=== PATIENT | female | born 1955 | race Caucasian/White ===

== ENCOUNTER 2016-06-27 21:43 | Observation (INO) | payer OTHER ==
[~2016-06-27] VITALS: Ht 160 cm; Wt 77.5 kg
[~2016-06-27 21:43] MED LIST: GUAI118L94 PO; IBUP-1542 PO; LORA-186 PO; MECL25TA2 PO
--- NOTE | 2016-06-27 22:10 | ERA ---
ER Documentation Chief Complaint Date/Time DATE: 06/27/16 TIME: 22:10 Chief Complaint Dizziness HPI The patient is a 61-year-old female, presenting to the ER because of acute dizziness that began about 8 PM, associated with right ear pain, nausea but no vomiting. She feels as if the room is spinning. The dizziness is better if she closed her eyes. She denies similar symptoms previously. She denies headache, neck pain, chest pain, dyspnea, abdominal pain, vomiting, dysuria, diarrhea. She does not smoke or drink Past medical history: Hypertension Past surgical history: 2 , appendectomy, back surgery ROS All systems reviewed and are negative except as per history of present illness. Medications Home Meds Reported Medications Amlodipine Besylate* (Norvasc*) 5 Mg Tablet, 5 MG PO DAILY, TAB 06/27/16 Discontinued Reported Medications [none] Unknown Strength No Conflict Check 03/19/15 Discontinued Scripts Ibuprofen* (Motrin*) 600 Mg Tab, 600 MG PO Q6H Y for PAIN AND OR ELEVATED TEMP, #30 TAB Prov:VON GILLIS NP 03/19/15 Guaifenesin-Codeine Phosphate* (Guaifenesin* with Codeine Liq) 120 Ml Liquid, 5 ML PO Q4H for COUGH, #60 ML Prov:VON GILLIS NP 03/19/15 Loratadine* (Claritin*) 10 Mg Tablet, 10 MG PO DAILY, #30 TAB Prov:VON GILLIS NP 03/19/15 Meclizine Hcl* (Antivert*) 25 Mg Tablet, 25 MG PO Q6H Y for vertigo, #20 TAB Prov:ALEAH SCHMIDT NP 12/15/14 Meclizine Hcl* (Antivert*) 25 Mg Tablet, 25 MG PO Q6H Y for NAUSEA AND/OR VOMITING, #20 TAB Prov:MARISA CORREA DO 11/05/14 Allergies Allergies: Coded Allergies: No Known Drug Allergies (Verified Allergy, Mild, 06/27/16) PMhx/Soc History of Surgery: Yes (C SECTION X2, APPENDECTOMY, BACK ) Anesthesia Reaction: No Hx Neurological Disorder: No Hx Respiratory Disorders: No Hx Cardiac Disorders: Yes (HTN) Hx Psychiatric Problems: No Hx Miscellaneous Medical Probl: No Hx Alcohol Use: No Hx Substance Use: No Hx Tobacco Use: No Smoking Status: Former smoker Physical Exam Vitals Vital Signs Date Time Temp Pulse Resp B/P Pulse Ox O2 Delivery O2 Flow Rate FiO2 06/28/16 00:40 97.6 64 17 130/80 98 Room Air 06/27/16 23:05 57 19 152/75 98 Room Air 06/27/16 22:05 60 14 140/79 97 Room Air 06/27/16 21:52 96.9 70 22 193/91 98 Physical Exam Const: No acute distress. Head: Atraumatic. Eyes: Normal Conjunctiva. ENT: Normal External Ears, Nose and Mouth. Neck: Full range of motion. No meningismus. Resp: Clear to auscultation bilaterally. Cardio: Regular rate and rhythm, no murmurs. Abd: Soft, non distended, normal bowel sounds, non tender. Skin: No petechiae or rashes. Back: No midline or flank tenderness. Ext: No cyanosis, or edema. Neur: Awake and alert. No focal deficit Psych: Normal Mood and Affect. Result Diagram: 06/27/16222406/27/162224 Results 24 hrs Laboratory Tests Test 06/27/16 22:25 06/27/16 22:30 06/27/16 23:09 White Blood Count 7.210^3/ul Red Blood Count 4.7410^6/ul Hemoglobin 14.5g/dl Hematocrit 43.2% Mean Corpuscular Volume 91.1fl Mean Corpuscular Hemoglobin 30.6pg Mean Corpuscular Hemoglobin Concent 33.6g/dl Red Cell Distribution Width 11.7% Platelet Count 38157^3/UL Mean Platelet Volume 11.2fl Neutrophils % 53.8% Lymphocytes % 35.6% Monocytes % 7.5% Eosinophils % 2.5% Basophils % 0.3% Nucleated Red Blood Cells % 0.0/100WBC Neutrophils # 3.910^3/ul Lymphocytes # 2.610^3/ul Monocytes # 0.510^3/ul Eosinophils # 0.210^3/ul Basophils # 0.010^3/ul Nucleated Red Blood Cells # 0.010^3/ul Prothrombin Time 12.7Sec Prothrombin Time Ratio 1.0 INR International Normalized Ratio 0.95 Activated Partial Thromboplast Time 33.2Sec Sodium Level 145mmol/L Potassium Level 3.8mmol/L Chloride Level 106mmol/L Carbon Dioxide Level 28mmol/L Anion Gap 15 Blood Urea Nitrogen 20mg/dl Creatinine 0.69mg/dl Glucose Level 106mg/dl Calcium Level 9.0mg/dl Bedside Glucose 107mg/dL Bedside Urine pH (LAB) 6.0 Bedside Urine Protein (LAB) Negative Bedside Urine Glucose (UA) Negative Bedside Urine Ketones (LAB) Trace Bedside Urine Blood Negative Bedside Urine Nitrite (LAB) Negative Bedside Urine Leukocyte Esterase (L Negative Current Medications Medications (Trade) Dose Ordered Sig/Rosi Route PRN Reason Start Time Stop Time Status Last Admin Dose Admin Meclizine HCl (Antivert) 25 mg ONCE ONCE PO 06/27/16 22:30 06/27/16 22:31 DC 06/27/16 22:34 Ondansetron HCl (Zofran Odt) 4 mg ONCE STAT ODT 06/27/16 22:22 06/27/16 22:24 DC 06/27/16 22:34 Ondansetron HCl (Zofran Inj) 4 mg ONCE STAT IV 06/27/16 23:13 06/27/16 23:14 DC 06/27/16 23:21 Procedures/[place] [id number] Radiology Main Line: [phone] DIAGNOSTIC IMAGING REPORT Patient: ANDREI HUNTER : 1955 Age: 61 Sex: F MR #: [id number] DOS: 06/27/162221 Ordering MD: SRINIVAS CARNEY MD Location: E/R Room/Bed: PROCEDURE: CT Brain without contrast. CLINICAL INDICATION: Syncope. TECHNIQUE: Serial axial computed tomographic images of the brain was performed on a CT scanner from the skull base through the vertex without contrast. Sagittal and coronal reconstruction images were produced. Exam CTDlvol = 44 mGy and DLP = 720 mGy-cm. One of the following 3 dose reduction techniques were used: Automated exposure control; adjustment of the mA and/or kV according to patient size; or use of iterative reconstruction technique. COMPARISON: None available FINDINGS: The ventricles and sulci are normal in size and configuration. There is no midline shift. There are no focal parenchymal abnormalities. There is no acute stroke. No acute intracranial hemorrhage or abnormal extra-axial fluid collection. No fracture identified. Visualized paranasal sinuses are clear. IMPRESSION: 1. No acute intracranial abnormality. RPTAT: HMVK .Srinivas Macedo MD, Date Time Electronically viewed and signed by .Srinivas Macedo MD, MD on 06/27/2016 23:12 .K/ CC: SRINIVAS CARNEY MD EKG: Read by emergency physician Rate/Rhythm: Normal Sinus Rhythm 60 beats/min QRS, ST, T-waves: No ST elevation, no T inversion Impression: Normal EKG MEDICAL MAKING DECISION: The patient is a 61-year-old female, presenting to the ER because of acute dizziness, most likely acute benign positional vertigo. She was treated with Zofran 4 mg IV 2 for nausea and Antivert 25 mg p.o. for dizziness with minimal response. She is unable to ambulate independently because of the dizziness, therefore should be admitted for further evaluation and possible further imaging study. The differential diagnoses considered include but are not limited to central causes such as cerebellar infarct, cerebellar hemorrhage, cerebellar tumor, acoustic neuroma, peripheral causes such as benign positional vertigo, labyrinthitis, medication, Meniere's disease. Departure Diagnosis: Primary Impression: Dizziness Condition: Stable Comments I discussed the findings with the patient. I discussed the patient with his physician Dr. Lazcano who was made aware of the lab, the treatment, the patient condition. The patient is admitted to telemetry for 24 hours observation at 12: 15 AM SRINIVAS CARNEY MD Jun 27, 2016 22:10
[2016-06-27] MEDS ORDERED: AMLO5TAB4 PO (22:17)
[2016-06-27] MEDS ORDERED: ONDANSETRON (ODT) 4 MG TAB ODT STA (22:22)
[2016-06-27] MEDS ORDERED: MECLIZINE 12.5 MG TAB PO ONE (22:30)
[2016-06-27 22:36] LABS: ADD SCAN DIFF NO
[2016-06-27 22:39] LABS: BASOPHILS % 0.3 % (0.0-2.0); EOSINOPHILS # 0.2 10^3/ul (0.0-0.5); EOSINOPHILS % 2.5 % (0.0-7.0); HEMATOCRIT 43.2 % (37.0-47.0); HEMOGLOBIN 14.5 g/dl (12.0-16.0); LYMPHOCYTES # 2.6 10^3/ul (0.8-2.9); LYMPHOCYTES % 35.6 % (15.0-51.0); MEAN CORPUSCULAR HEMOGLOBIN 30.6 pg (29.0-33.0); MEAN CORPUSCULAR HGB CONC 33.6 g/dl (32.0-37.0); MEAN CORPUSCULAR VOLUME 91.1 fl (82.0-101.0); MEAN PLATELET VOLUME 11.2 fl (7.4-10.4); MONOCYTE # 0.5 10^3/ul (0.3-0.9); MONOCYTES % 7.5 % (0.0-11.0); NEUTROPHIL # 3.9 10^3/ul (1.6-7.5); NEUTROPHILS % 53.8 % (39.0-77.0); PLATELET COUNT 183 10^3/UL (140-415); RED BLOOD COUNT 4.74 10^6/ul (4.20-5.40); RED CELL DISTRIBUTION WIDTH 11.7 % (11.5-14.5); WHITE BLOOD COUNT 7.2 10^3/ul (4.8-10.8)
[2016-06-27 22:49] LABS: INR 0.95; PROTIME 12.7 Sec (12.2-14.2)
[2016-06-27 22:50] LABS: PARTIAL THROMBOPLASTIN TIME 33.2 Sec (25.0-35.0)
[2016-06-27 22:53] LABS: POTASSIUM 3.8 mmol/L (3.5-5.1)
[2016-06-27 22:56] LABS: CREATININE 0.69 mg/dl (0.44-1.00)
[2016-06-27 23:11] LABS: URINE BLOOD (Dip) POC Negative (NEGATIVE)
--- NOTE | 2016-06-27 23:12 | RADRPT ---
PROCEDURE: CT Brain without contrast. CLINICAL INDICATION: Syncope. TECHNIQUE: Serial axial computed tomographic images of the brain was performed on a CT scanner fro m the skull base through the vertex without contrast. Sagittal and coronal reconstruction images wer e produced. Exam CTDlvol = 44 mGy and DLP = 720 mGy-cm. One of the following 3 dose reduction tech niques were used: Automated exposure control; adjustment of the mA and/or kV according to patient si ze; or use of iterative reconstruction technique. COMPARISON: None available FINDINGS: The ventricles and sulci are normal in size and configuration. There is no midline shift. There ar e no focal parenchymal abnormalities. There is no acute stroke. No acute intracranial hemorrhage o r abnormal extra-axial fluid collection. No fracture identified. Visualized paranasal sinuses are clear. IMPRESSION: 1. No acute intracranial abnormality. RPTAT: HMVK .Srinivas Macedo MD, Date Time Electronically viewed and signed by .Srinivas Macedo MD, on 06/27/2016 23:12 .K/
[2016-06-27] MEDS ORDERED: ONDANSETRON 4 MG INJ IV STA (23:13)
[2016-06-28] VITALS (9 sets, daily range): BP systolic 99–119; BP diastolic 57–67; PULSE 53–64; RESP 17–19; TEMP 97.6; Ht 160 cm; Wt 77.5 kg
[2016-06-28] MEDS ORDERED: ACETAMINOPHEN 325 MG TAB PO PRN (03:30)
[2016-06-28] MEDS ORDERED: MECLIZINE 25 MG TAB PO PRN (03:30)
[2016-06-28] MEDS ORDERED: ZOLPIDEM 5 MG TAB PO PRN (03:30)
[2016-06-28] MEDS ORDERED: HYDROCODONE/APAP (5/325) TAB PO PRN (03:30)
[2016-06-28] MEDS: DEXTROSE 5%-0.45% NACL 1,000 ML IV SCH ×2 (03:34→11:50)
[2016-06-28 07:36] LABS: POTASSIUM 3.8 mmol/L (3.5-5.1)
[2016-06-28 07:39] LABS: CREATININE 0.73 mg/dl (0.44-1.00)
[2016-06-28 07:40] LABS: CALCIUM 8.6 mg/dl (8.4-10.2); CHOL/HDL RATIO 5.2 RATIO
--- NOTE | 2016-06-28 17:32 | PDOCDIS ---
Discharge Instructions CONDITION Patient Condition: Good HOME CARE INSTRUCTIONS: Diet Instructions: Reduced Sodium ACTIVITY: Activity Restrictions: No Restrictions FOLLOW UP/APPOINTMENTS Appointments follow up with PCP next week BOBBY DELGADO Jun 28, 2016 17:32
[2016-06-28] MEDS ORDERED: CIPR1DRO3 RIGHT EAR ×2 (17:34→17:37)
--- NOTE | 2016-06-28 20:43 | HP ---
DATE OF ADMISSION: 06/28/2016 ADMITTING PHYSICIAN: Dr. Viveros. CHIEF COMPLAINT ON ADMISSION: Reported dizziness. HISTORY OF PRESENT ILLNESS: This is a 61-year-old female with history of hypertension, currently co ntrolled on Norvasc, who presented to the ER with acute onset of dizziness around 8:00 p.m. The pat ient reports that she was having right ear pain. She was lying in bed and when she tried to get up she was feeling vertiginous. She denies any nausea, vomiting, chest pain, palpitation. She was debbie ble to stand; therefore, she came to the emergency department as she was feeling like the room was s pinning. Her dizziness was much better when she closed her eyes. By this morning her dizziness is completely resolved. She has no signs of vertigo at all. Her ear pain is also improved. She denie s headaches, neck pain. She denies any gastrointestinal or genitourinary complaints. She is curren tly back to baseline. Her ear exam is fairly benign. She may have mild otitis externa, and for bobbi t she will receive Cipro eardrops. She will be discharged home. PAST MEDICAL HISTORY: Hypertension. PAST SURGICAL HISTORY: 1. Status post x2, remotely. 2. Status post appendectomy, remotely. 3. Status post right lipoma removal from her back, remotely. REVIEW OF SYSTEMS: As per HPI. OUTPATIENT MEDICATIONS: Norvasc 5 mg p.o. daily. ALLERGIES: NO KNOWN ALLERGIES. SOCIAL HISTORY: The patient quit smoking 13 years ago. She occasionally drinks alcohol. PHYSICAL EXAMINATION: VITAL SIGNS: Temperature is 98.5, heart rate of 55, respiratory rate 17, blood pressure 110/58. Sh e is satting 97% on room air. GENERAL: She is alert and oriented x4. She is in no acute distress currently. She is able to get in and out of the bed fairly quickly actually with no symptoms of vertigo. Her ear pain is much imp roved. HEENT: Pupils are equally round and reactive to light. Extraocular muscles are intact. Anicteric sclerae. NECK: No JVD, no thyromegaly. EARS: Her ear exam: Her right ear, she does have mild erythema in the ER canal but the tympanic me mbrane is intact. Left ear is completely intact. No signs of erythema, she just has some ear wax. HEART: Regular rate and rhythm. No murmur, rubs, or gallops. LUNGS: Clear to auscultation bilaterally. ABDOMEN: Soft, nontender, nondistended. Bowel sounds are present. EXTREMITIES: No edema, clubbing or cyanosis. NEUROLOGIC: Grossly intact. Currently no signs of vertigo. LABORATORY DATA: White blood cell count 7.2, hemoglobin 14.5, hematocrit 43.2, platelet count of 18 3. Chemistry within normal with creatinine of 0.73. Electrolytes within normal. Fasting lipid morton el with slightly elevated triglyceride 174, otherwise within normal. INR 0.95. PT 12.5, PTT 33.2. Urine tox screen negative. Urinalysis negative. RADIOLOGICAL DATA: CAT scan of the brain without contrast: No acute abnormalities were seen. ASSESSMENT AND PLAN: 1. This is a 61-year-old female with a brief episode of benign positional vertigo with possibly exa cerbated with her ear pain which is resolved this morning. Since she has mild otitis externa of the right ear, I did give her a prescription for Cipro Otic for the next 7 days. She needs to follow u p with her primary care physician. Her dizziness is completely resolved. 2. Hypertension. She can resume her Norvasc when she goes back home by tomorrow. DISPOSITION: Discharge home. Follow up with a primary care physician by next week. Dictated By: BOBBY SCHWARTZ/REM[place] Conf#: [id number] DID#: [id number]
[2016-06-28] MEDS ORDERED: CIPROFLOXACIN HCL OTIC DROP 0.25 ML RIGHT EAR SCH (21:00)
[2016-06-29] MEDS ORDERED: AMLODIPINE 5 MG TAB PO SCH (09:00)
== END 2016-06-28 19:05 | disposition home or self-care (01) ==
LOC: E/R 21:43 → MS4 06-28 00:17
PROVIDERS: ADMIT Internal Medicine; ATTEND Internal Medicine
DX: H81.10 Benign paroxysmal vertigo, unspecified ear (principal); H60.91 Unspecified otitis externa, right ear; I10 Essential (primary) hypertension; Z87.891 Personal history of nicotine dependence
CPT/HCPCS: 36415; 70450; 80048; 80061; 81003; 82962; 85025; 85610; 85730; 93005; 96374; J2405; J7042; Z7500; Z7502; Z7610; G0378

== ENCOUNTER 2016-08-13 18:11 | Emergency (ER) | payer OTHER ==
[~2016-08-13] VITALS: Ht 167.6 cm; Wt 78.5 kg
[~2016-08-13 18:11] MED LIST changes: +AMLO5TAB4 PO; +CIPR1DRO3 RIGHT EAR; -GUAI118L94 PO; -IBUP-1542 PO; -LORA-186 PO; -MECL25TA2 PO
[2016-08-13 18:27] VITALS: Ht 167.6 cm; Wt 78.5 kg
[2016-08-13] MEDS ORDERED: IPRATROPIUM (NEB) 0.5 MG/2.5 ML AMP INH STA (18:52)
[2016-08-13] MEDS ORDERED: SOD CHLORIDE 0.9% 1,000 ML IV STA (18:52)
[2016-08-13] MEDS ORDERED: ASPIRIN 325 MG TAB PO STA (18:52)
[2016-08-13] MEDS ORDERED: METHYLPREDNISOLONE 125 MG INJ IV STA (18:52)
[2016-08-13] MEDS ORDERED: ALBUTEROL 0.083% (NEB) 2.5 MG/3 ML AMP INH STA (18:52)
[2016-08-13] MEDS ORDERED: BENZONATATE 100 MG CAP PO ONE (19:00)
[2016-08-13] MEDS ORDERED: NITROGLYCERIN (SL) 0.4 MG TAB SL PRN (19:00)
[2016-08-13 19:17] LABS: ADD SCAN DIFF NO
[2016-08-13 19:18] LABS: BASOPHILS % 0.3 % (0.0-2.0); EOSINOPHILS # 0.2 10^3/ul (0.0-0.5); EOSINOPHILS % 2.4 % (0.0-7.0); HEMOGLOBIN 14.5 g/dl (12.0-16.0); LYMPHOCYTES # 1.3 10^3/ul (0.8-2.9); MEAN CORPUSCULAR HEMOGLOBIN 31.2 pg (29.0-33.0); MEAN CORPUSCULAR HGB CONC 34.5 g/dl (32.0-37.0); MEAN CORPUSCULAR VOLUME 90.3 fl (82.0-101.0); MEAN PLATELET VOLUME 11.3 fl (7.4-10.4); MONOCYTE # 0.6 10^3/ul (0.3-0.9); NEUTROPHIL # 7.6 10^3/ul (1.6-7.5); PLATELET COUNT 156 10^3/UL (140-415); RED BLOOD COUNT 4.65 10^6/ul (4.20-5.40); RED CELL DISTRIBUTION WIDTH 11.6 % (11.5-14.5); WHITE BLOOD COUNT 9.7 10^3/ul (4.8-10.8)
[2016-08-13 19:33] LABS: INR 0.97; PROTIME 12.9 Sec (12.2-14.2)
[2016-08-13 19:42] LABS: ALANINE AMINOTRANSFERASE 32 IU/L (13-69); ALBUMIN 4.2 g/dl (3.3-4.9); ALBUMIN/GLOBULIN RATIO 1.23; ALKALINE PHOSPHATASE 148 IU/L (42-121); ANION GAP 11 (8-16); ASPARTATE AMINO TRANSFERASE 21 IU/L (15-46); BILIRUBIN,INDIRECT 0.3 mg/dl (0-1.1); BILIRUBIN,TOTAL 0.3 mg/dl (0.2-1.3); BLOOD UREA NITROGEN 16 mg/dl (7-20); CALCIUM 8.9 mg/dl (8.4-10.2); CARBON DIOXIDE 25 mmol/L (21-31); CHLORIDE 105 mmol/L (97-110); CREATINE KINASE 85 IU/L (23-200); GLUCOSE 125 mg/dl (70-220); POTASSIUM 3.4 mmol/L (3.5-5.1); SODIUM 138 mmol/L (135-144); TOTAL PROTEIN 7.6 g/dl (6.1-8.1)
--- NOTE | 2016-08-13 19:46 | RADRPT ---
PROCEDURE: XR Chest. CLINICAL INDICATION: Chest pain. TECHNIQUE: Single frontal chest x-ray. COMPARISON: None. FINDINGS: The cardiomediastinal silhouette is unremarkable. There is no congestive heart failure.. No focal i nfiltrate is seen. There is no pleural effusion. There is no pneumothorax. The osseous structures are unremarkable. IMPRESSION: 1. No active disease. RPTAT: HMVK .Srinivas Macedo MD, MD Date Time Electronically viewed and signed by .Srinivas Macedo MD, MD on 08/13/2016 19:46 .K/
[2016-08-13 19:55] LABS: B-TYPE NATRIURETIC PEPTIDE 80 PG/ML (0-125); CK-MB 1.32 ng/ml (0.0-2.4)
[2016-08-13 19:57] LABS: CREATININE 0.59 mg/dl (0.44-1.00)
[2016-08-13] MEDS ORDERED: IOHEXOL 100 ML ONE (20:01)
[2016-08-13] MEDS ORDERED: SOD CHLORIDE 0.9% 100 ML ONE (20:01)
[2016-08-13] MEDS ORDERED: IOHEXOL 350MG/ML 50 ML BTL ONE (20:01)
[2016-08-13 20:05] LABS: TROPONIN-I < 0.012 ng/ml (0.00-0.12)
--- NOTE | 2016-08-13 20:29 | ERD ---
ER Documentation Chief Complaint Date/Time DATE: 08/13/16 TIME: 20:22 Chief Complaint chest pain w/ sob x 1 week, cough x 1 week HPI This is a 61-year-old female with a past medical history of hypertension that presents to the emergency department complaining of shortness of breath and productive cough for over one week. Her son brought her to the emergency department today as he states that cough has progressively worsened with whitish phlegm. She appeared to have severe dyspnea and has had similar episodes in the past diagnosed with bronchospasm. However the patient does not have any inhalers that she utilized at home. She denies any recent travel or prolonged immobilization. She has no swelling of her lower extremities. She indicates she does not have any chest pressure that radiates to the neck arm back or jaw but is complaining of pleuritic chest pain that is present when coughing. She denies a headache. She has had a tactile fever with no shaking or chills and has not taken any antipyretics prior to arrival. ROS All systems reviewed and are negative except as per history of present illness. Medications Home Meds Active Scripts Prednisone (Prednisone) 50 Mg Tab, 50 MG PO DAILY, #5 TAB Prov:CHRISTINE HOLMAN 08/13/16 Albuterol Sulfate* (Proair HFA*) 8.5 Gm Hfa.aer.ad, 2 PUFF INH Q4, #1 INHALER Prov:CHRISTINE HOLMAN 08/13/16 Azithromycin* (Zithromax*) 500 Mg Tablet, 500 MG PO DAILY for 5 Days, TAB Prov:CHRISTINE HOLMAN 08/13/16 Benzonatate* (Tessalon Perle*) 100 Mg Capsule, 100 MG PO Q8H Y for COUGH, #20 CAP Prov:CHRISTINE HOLMAN 08/13/16 Reported Medications Amlodipine Besylate* (Norvasc*) 5 Mg Tablet, 5 MG PO DAILY, TAB 06/27/16 Discontinued Scripts Ciprofloxacin Hcl (CIPROFLOXACIN HCL) 1 Each Droperette, 2 DROP RIGHT EAR BID for 7 Days Prov:BOBBY VIVEROS 06/28/16 Allergies Allergies: Coded Allergies: No Known Drug Allergies (Verified Allergy, Mild, 08/13/16) PMhx/Soc Anesthesia Reaction: No Hx Neurological Disorder: No Hx Respiratory Disorders: No Hx Cardiac Disorders: Yes (Hypertension) Hx Psychiatric Problems: No Hx Miscellaneous Medical Probl: No Hx Alcohol Use: Yes Hx Substance Use: No Hx Tobacco Use: Yes Smoking Status: Former smoker Physical Exam Vitals Vital Signs Date Time Temp Pulse Resp B/P Pulse Ox O2 Delivery O2 Flow Rate FiO2 08/13/16 19:24 96 2.0 08/13/16 19:24 91 24 96 Nasal Cannula 2.0 08/13/16 19:05 Nasal Cannula 2 08/13/16 18:27 100.0 100 20 167/81 97 Physical Exam Constitutional:Well-developed. Well-nourished. Patient in mild respiratory distress. HEENT:Normocephalic. Atraumatic.Pupils were equal round reactive to light. Moist mucous membranes.No tonsillar exudates. Neck: No nuchal rigidity. No lymphadenopathy. No posterior cervical spine tenderness or step-offs. Respiratory: Not using accessory muscles of respiration. Wheezing on end auscultation bilaterally. Patient able to speak in full complete sentences. No stridor. Cardiovascular: Regular rate regular rhythm.No murmurs. No rubs were appreciated.S1, S2 normal. Distal pulses are palpable 2+ bilaterally. Bilateral reproducible chest wall tenderness with no crepitus no ecchymosis no flail chest. GI: Abdomen was soft. Nontender. Non Distended. No pulsatile abdominal masses or bruits. No rebound. No guarding. Bowel sounds were present and normal. Muscle skeletal: Full range of motion of both the upper and lower extremities bilaterally.Normal muscle tone.No assymetrical calf tenderness or swelling. Skin: No petechia, no purpura. No lesions on the palms or the soles of the feet. No maculopapular rash. NEURO: Patient was alert, awake, orientated x3.No facial droop. Gait observed and normal with no ataxia.Speech had regular rate and rhythm. No focal neurological deficits. Result Diagram: 08/13/16190408/13/161904 Results 24 hrs Laboratory Tests Test 08/13/16 19:05 White Blood Count 9.710^3/ul Red Blood Count 4.6510^6/ul Hemoglobin 14.5g/dl Hematocrit 42.0% Mean Corpuscular Volume 90.3fl Mean Corpuscular Hemoglobin 31.2pg Mean Corpuscular Hemoglobin Concent 34.5g/dl Red Cell Distribution Width 11.6% Platelet Count 53372^3/UL Mean Platelet Volume 11.3fl Neutrophils % 78.0% Lymphocytes % 13.0% Monocytes % 6.0% Eosinophils % 2.4% Basophils % 0.3% Nucleated Red Blood Cells % 0.0/100WBC Neutrophils # 7.610^3/ul Lymphocytes # 1.310^3/ul Monocytes # 0.610^3/ul Eosinophils # 0.210^3/ul Basophils # 0.010^3/ul Nucleated Red Blood Cells # 0.010^3/ul Prothrombin Time 12.9Sec Prothrombin Time Ratio 1.0 INR International Normalized Ratio 0.97 Activated Partial Thromboplast Time 30.0Sec Sodium Level 138mmol/L Potassium Level 3.4mmol/L Chloride Level 105mmol/L Carbon Dioxide Level 25mmol/L Anion Gap 11 Blood Urea Nitrogen 16mg/dl Creatinine 0.59mg/dl Glucose Level 125mg/dl Calcium Level 8.9mg/dl Total Bilirubin 0.3mg/dl Direct Bilirubin 0.00mg/dl Indirect Bilirubin 0.3mg/dl Aspartate Amino Transf (AST/SGOT) 21IU/L Alanine Aminotransferase (ALT/SGPT) 32IU/L Alkaline Phosphatase 148IU/L Creatine Kinase 85IU/L Creatine Kinase Index 1.6 Creatinine Kinase MB (Mass) 1.32ng/ml Troponin I < 0.012ng/ml B-Type Natriuretic Peptide 80PG/ML Total Protein 7.6g/dl Albumin 4.2g/dl Globulin 3.40g/dl Albumin/Globulin Ratio 1.23 Lipase 28U/L Current Medications Medications (Trade) Dose Ordered Sig/Rosi Route PRN Reason Start Time Stop Time Status Last Admin Dose Admin Sodium Chloride (NS) 1,000 ml @ 1,000 mls/hr Q1H STAT IV 08/13/16 18:52 08/13/16 19:51 DC 08/13/16 19:11 Aspirin (Aspirin) 325 mg ONCE STAT PO 08/13/16 18:52 08/13/16 18:58 DC 08/13/16 19:11 Nitroglycerin (Nitroglycerin (Sl Tab) 0.4 Mg) 1 tab Q5M UP TO 3 DOSES PRN SL CHEST PAIN 08/13/16 19:00 08/13/16 19:12 Albuterol (Proventil 0.083% (Neb)) 5 mg ONCE STAT INH 08/13/16 18:52 08/13/16 18:58 DC 08/13/16 19:23 Ipratropium Ehrenberg (Atrovent 0.02% (Neb)) 0.5 mg ONCE STAT INH 08/13/16 18:52 08/13/16 18:58 DC 08/13/16 19:23 Methylprednisolone Sodium Succinate (Solu-Medrol) 125 mg ONCE STAT IV 08/13/16 18:52 08/13/16 18:58 DC 08/13/16 19:11 Benzonatate (Tessalon) 100 mg ONCE ONCE PO 08/13/16 19:00 08/13/16 19:01 DC 08/13/16 19:11 IV Flush 10 ml 10 ml STK-MED ONCE .ROUTE 08/13/16 20:01 08/13/16 20:02 DC 08/13/16 20:26 Sodium Chloride 100 ml @ ud STK-MED ONCE .ROUTE 08/13/16 20:01 08/13/16 20:02 DC Iohexol (Omnipaque) 100 ml @ ud STK-MED ONCE .ROUTE 08/13/16 20:01 08/13/16 20:02 DC 08/13/16 20:26 Iohexol (Omnipaque 350mg/ ml) 50 ml STK-MED ONCE .ROUTE 08/13/16 20:01 08/13/16 20:02 DC Procedures/MDM The patient presented to the emergency department with dyspnea. My differential diagnosis included but was not limited to upper airway obstruction, CHF, pulmonary embolism, cardiac ischemia, pneumonia, pneumothorax, anemia, drug overdose, pulmonary edema, COPD or asthma. IV access was established by nursing staff. The patient immediately was placed on a ekg monitor and continuous pulse oximetry. Patient appear to be in mild respiratory distress and has a known history of bronchospasm when reviewing previous medical records. She received nebulizer treatments of albuterol Atrovent and had been given 125 mg of Solu-Medrol. Chest radiograph reviewed by myself and the radiologist indicated no infiltrates or pneumothorax. I did feel that this could be a result of acute bronchitis. Given that the patient was also complained of pleuritic chest pain with shortness of breath I did feel is necessary to obtain a CT scan of the chest, reviewed by myself as well as the radiologist which indicated there is no evidence of a pulmonary embolism. The CT scan did indicate the followin. No evidence for pulmonary embolism. 2. Regions of ground-glass attenuation throughout both lungs. This may represent alveolitis, edema, or small airway / small vessel disease. If there is further concern, consider high-resolution chest CT. 3. Splenomegaly. 12 Lead EKG tracing ordered and reviewed by myself showed: Sinus tachycardia 106 bpm and no arrhythmia. HI interval normal. QRS duration normal. No ST segment elevation No ST segment depression. No changes consistent with acute ischemia. The patient has few cardiac risk factors and her pleuritic chest pain appeared more likely to be a result of pleurisy my clinical suspicion was low for myocardial ischemia. The patient's troponin was negative. I spoke with the [facility] physician Dr. Viveros, who kindly stated they will arrange for outpatient cardiology follow-up. The patient had been given Tessalon Perles in the emergency department improved her cough and will be sent home with a prescription of azithromycin, low-dose steroids, and inhaler and Tessalon Perles. The patient was discharged home in fair condition. They were instructed to return to the emergency department at any time if there was any worsening of their condition. The patient stated they would follow up with their PCP in the next 24-48 hours to initiate a suitable medication regimen under the care of their PCP as well as to allow their PCP to monitor any drug reactions. The patient was discharged home with prescriptions after they gave informed consent to the new medication. They were also fully informed by myself on the adverse effects and adverse drug interactions in order to provide adequate safeguards to prevent possible adverse reactions to medications. Departure Diagnosis: Primary Impression: Pleuritic chest pain Additional Impression: Bronchospasm with bronchitis, acute Condition: Fair CHRISTINE HOLMAN August 13, 2016 20:29
[2016-08-13] MEDS ORDERED: BENZ100C70 PO (20:33)
[2016-08-13] MEDS ORDERED: PRED50 PO (20:33)
[2016-08-13] MEDS ORDERED: AZIT500T3 PO (20:33)
[2016-08-13] MEDS ORDERED: ALBU8.5H3 INH (20:33)
--- NOTE | 2016-08-13 20:54 | RADRPT ---
PROCEDURE: CTA Chest and pulmonary angiogram. CLINICAL INDICATION: Shortness of breath. TECHNIQUE: CT scan of the chest and CT pulmonary angiogram was performed on a multidetector high-r [employer] CT scanner. High-resolution thin slice coronal and sagittal imaging was obtained from the axial source images. 3-D volumetric rendered post processing was performed as well. The patient w as examined following the uncomplicated intravenous administration of 107 cc of Omnipaque-350. The i mages were reviewed on a PACS workstation. One or more of the following dose reduction techniques we re used: Automated exposure control, adjustment of the mA and/or kV according to patient size, use of iterative reconstruction technique. The total exam CTDI equals 25.4, 13.7 and the total exam DLP equals 527.8 mGy-cm. COMPARISON: No prior studies are available for comparison. FINDINGS: CT chest: Regions of ground-glass attenuation are seen throughout both lungs, especially in the right middle l obe and posterior bilateral lower lobes. Otherwise, the lungs are clear. No focal opacification, e ffusion, pneumothorax, or nodules are seen. The central tracheobronchial tree is clear. The mediastinum is unremarkable without evidence for mass or lymphadenopathy. The vascular structur es of the mediastinum are normal in course and caliber. The heart size is normal without pericardia l thickening or effusion. The axillary, subpectoral, and supraclavicular regions are unremarkable. The spleen is enlarged measuring 13 cm craniocaudally. Imaging obtained through the upper abdomen i s otherwise unremarkable. The adrenal glands are symmetrically normal. The surrounding chest wall is unremarkable. The osseous structures are remarkable for degenerative spondylosis of the spine. CT pulmonary angiogram: No thrombus, clot, filling defect, or pulmonary web is identified. The pulmonary arteries are micah l in caliber and morphology. No filling defect is present to suggest pulmonary embolism. There is no evidence for pulmonary arterial hypertension. IMPRESSION: 1. No evidence for pulmonary embolism. 2. Regions of ground-glass attenuation throughout both lungs. This may represent alveolitis, edema , or small airway / small vessel disease. If there is further concern, consider high-resolution addie st CT. 3. Splenomegaly. RPTAT: HRAA .Pancho Vee MD, MD Date Time Electronically viewed and signed by .Pancho Vee MD, on 08/13/2016 20:54 .A/
[2016-08-13 22:18] VITALS: BP 160/81; PULSE 103; RESP 20; TEMP 100
== END 2016-08-13 22:18 | disposition home or self-care (01) ==
LOC: E/R 18:11
DX: R07.81 Pleurodynia (principal); J20.9 Acute bronchitis, unspecified; I10 Essential (primary) hypertension; R06.02 Shortness of breath; Z87.891 Personal history of nicotine dependence
CPT/HCPCS: 71010; 71275; 80053; 82550; 82553; 83690; 83880; 84484; 85025; 85610; 85730; 87400; 93005; 94664; 96374; J2930; J7030; Q9967; Z7502; Z7610

== ENCOUNTER 2016-10-16 05:00 | Emergency (ER) | payer OTHER ==
[~2016-10-16] VITALS: Ht 165.1 cm; Wt 72.7 kg
[~2016-10-16 05:00] MED LIST changes: +ALBU8.5H3 INH; +AZIT500T3 PO; +BENZ100C70 PO; -CIPR1DRO3 RIGHT EAR; +PRED50 PO
[2016-10-16 05:08] VITALS: Ht 165.1 cm; Wt 72.7 kg
[2016-10-16] MEDS ORDERED: IPRATROPIUM (NEB) 0.5 MG/2.5 ML AMP INH STA (05:11)
[2016-10-16] MEDS ORDERED: ALBUTEROL 0.5% (NEB) 2.5 MG/0.5 ML AMP INH STA ×2 (05:11→06:42)
[2016-10-16 05:25] LABS: AADO2 Arterial 174.1 mmHg (7.0-24.0); Allen Test ACCEPTAB; Arterial Base Excess -0.8 mmol/L (-3.0-3); Arterial COHb 0 % (0.0-3.0); Arterial Fraction of Oxyhgb 97.5 % (93.0-99.0); Arterial HCO3 23.2 mmol/L (22.0-26.0); Arterial MetHb 0.3 % (0.0-1.5); Arterial Total Hemglobin 15.6 g/dl (12.0-18.0); MODE MASK - SIMPLE
[2016-10-16] MEDS ORDERED: OMEP40CA6 PO (05:31)
[2016-10-16 05:51] LABS: ADD SCAN DIFF NO
--- NOTE | 2016-10-16 06:02 | RADRPT ---
PROCEDURE: CHEST - 1 VIEW CLINICAL INDICATION: 61-year-old female with shortness of breath. TECHNIQUE: A single frontal AP upright portable view of the chest was performed. The images were reviewed on a PACS workstation. COMPARISON: None. FINDINGS: The cardiomediastinal silhouette has a normal appearance. There is no evidence for an infiltrate. There is no evidence for congestive heart failure. There is no evidence for pneumothorax. The osseou s structures are intact. IMPRESSION: No evidence for active cardiopulmonary disease. .Hermes Wong MD, MD Date Time Electronically viewed and signed by .Hermes Wong MD, on 10/16/2016 06:01 .Lauren/
[2016-10-16 06:04] LABS: BASOPHILS % 0.3 % (0.0-2.0); EOSINOPHILS # 0.2 10^3/ul (0.0-0.5); EOSINOPHILS % 3.6 % (0.0-7.0); HEMATOCRIT 44.4 % (37.0-47.0); HEMOGLOBIN 14.8 g/dl (12.0-16.0); LYMPHOCYTES # 2.4 10^3/ul (0.8-2.9); MEAN CORPUSCULAR HEMOGLOBIN 30.5 pg (29.0-33.0); MEAN CORPUSCULAR HGB CONC 33.3 g/dl (32.0-37.0); MEAN CORPUSCULAR VOLUME 91.5 fl (82.0-101.0); MEAN PLATELET VOLUME 11.7 fl (7.4-10.4); MONOCYTE # 0.5 10^3/ul (0.3-0.9); MONOCYTES % 7.6 % (0.0-11.0); NEUTROPHIL # 3.1 10^3/ul (1.6-7.5); NEUTROPHILS % 50.2 % (39.0-77.0); PLATELET COUNT 157 10^3/UL (140-415); RED BLOOD COUNT 4.85 10^6/ul (4.20-5.40); RED CELL DISTRIBUTION WIDTH 12.1 % (11.5-14.5); WHITE BLOOD COUNT 6.2 10^3/ul (4.8-10.8)
[2016-10-16 06:13] LABS: INR 0.95; PROTIME 12.7 Sec (12.2-14.2)
[2016-10-16 06:14] LABS: ALANINE AMINOTRANSFERASE 27 IU/L (13-69); ALBUMIN 4.6 g/dl (3.3-4.9); ALBUMIN/GLOBULIN RATIO 1.64; ALKALINE PHOSPHATASE 139 IU/L (42-121); ANION GAP 7 (8-16); ASPARTATE AMINO TRANSFERASE 23 IU/L (15-46); BILIRUBIN,INDIRECT 0.2 mg/dl (0-1.1); BILIRUBIN,TOTAL 0.2 mg/dl (0.2-1.3); BLOOD UREA NITROGEN 21 mg/dl (7-20); CALCIUM 9.1 mg/dl (8.4-10.2); CARBON DIOXIDE 27 mmol/L (21-31); CHLORIDE 105 mmol/L (97-110); CREATININE 0.61 mg/dl (0.44-1.00); GLUCOSE 120 mg/dl (70-220); PARTIAL THROMBOPLASTIN TIME 30.6 Sec (25.0-35.0); POTASSIUM 3.4 mmol/L (3.5-5.1); SODIUM 136 mmol/L (135-144); TOTAL PROTEIN 7.4 g/dl (6.1-8.1)
[2016-10-16 06:25] LABS: B-TYPE NATRIURETIC PEPTIDE 37 PG/ML (0-125); TROPONIN-I < 0.012 ng/ml (0.00-0.12)
[2016-10-16] MEDS ORDERED: FAMOTIDINE 20 MG INJ IV ONE (06:30)
[2016-10-16] MEDS ORDERED: LIDOCAINE/MYLANTA 40 ML BTL PO ONE (06:30)
[2016-10-16 06:40] VITALS: TEMP 97.6
[2016-10-16] MEDS ORDERED: SOD CHLORIDE 0.9% 500 ML IV STA (06:41)
--- NOTE | 2016-10-16 06:41 | ERD ---
ER Documentation Chief Complaint Date/Time DATE: 10/16/16 TIME: 06:26 Chief Complaint SOB s/p vomiting while sleep. "my throat granados" Hx: GERD HPI 61-year-old female with history of hypertension, GERD/gastritis and bronchitis with bronchospasm presents to the ED complaining of awakening at 1 AM with burning sensation in her throat and coughing with mild dyspnea. No abdominal pain but nausea with one episode of nonbloody nonbilious emesis. Denies hematemesis, hematochezia or melanotic stools. Mild, nonproductive cough with burning odynophagia but no dysphagia. Denies chest pain or palpitations. Similar symptoms over the last several months which have been worsening. Treated by her PMD with omeprazole but she only takes it when symptomatic. Denies headache, neck or back pain. No visual changes, focal weakness or numbness. No URI symptoms, rhinorrhea or body aches. No leg pain or swelling. No skin rash. No fevers or chills. ROS All other systems reviewed and are negative except as per history of present illness. Medications Home Meds Active Scripts Magaldrate/Simethicone* (Mylanta*) 355 Ml Susp, 30 ML PO QID Y for GASTROINTESTINAL UPSET, #1 BOTTLE Prov:NELSON ROSA MD 10/16/16 Albuterol Sulfate* (Proair HFA*) 8.5 Gm Hfa.aer.ad, 2 PUFF INH Q4H Y for WHEEZING AND SOB, #1 INHALER Prov:NELSON ROSA MD 10/16/16 Metoclopramide* (Reglan*) 10 Mg Tablet, 10 MG PO Q8 Y for NAUSEA AND/OR VOMITING , #12 TAB Prov:NELSON ROSA MD 10/16/16 Famotidine* (Pepcid*) 20 Mg Tablet, 20 MG PO BID for 10 Days, TAB Prov:NELSON ROSA MD 10/16/16 Reported Medications Omeprazole* (Omeprazole*) 40 Mg Capsule.dr, 40 MG PO DAILY, #30 CAP 10/16/16 Amlodipine Besylate* (Norvasc*) 5 Mg Tablet, 5 MG PO DAILY, TAB 06/27/16 Discontinued Scripts Prednisone (Prednisone) 50 Mg Tab, 50 MG PO DAILY, #5 TAB Prov:CHRISTINE HOLMAN 08/13/16 Albuterol Sulfate* (Proair HFA*) 8.5 Gm Hfa.aer.ad, 2 PUFF INH Q4, #1 INHALER Prov:CHRISTINE HOLMAN 08/13/16 Azithromycin* (Zithromax*) 500 Mg Tablet, 500 MG PO DAILY for 5 Days, TAB Prov:CHRISTINE HOLMAN 08/13/16 Benzonatate* (Tessalon Perle*) 100 Mg Capsule, 100 MG PO Q8H Y for COUGH, #20 CAP Prov:CHRISTINE HOLMAN 08/13/16 Allergies Allergies: Coded Allergies: No Known Drug Allergies (Unverified Allergy, Mild, 10/16/16) PMhx/Soc Reviewed in chart. As per HPI. History of Surgery: Yes ( 2, appendectomy) Anesthesia Reaction: No Hx Neurological Disorder: No Hx Respiratory Disorders: Yes (Bronchitis) Hx Cardiac Disorders: Yes (Hypertension) Hx Psychiatric Problems: No Hx Miscellaneous Medical Probl: Yes (Gastritis) Hx Alcohol Use: Yes Hx Substance Use: No Hx Tobacco Use: Yes Smoking Status: Former smoker (Approximately 30 pack years. Quit 14 years ago) FmHx Sister: Hypertension and renal disease. No family history of cancer, stroke or cardiac disease Physical Exam Vitals Vital Signs Date Time Temp Pulse Resp B/P Pulse Ox O2 Delivery O2 Flow Rate FiO2 10/16/16 09:15 100 12 95/58 97 Room Air Nasal Cannula 10/16/16 06:53 93 22 97 Nasal Cannula 10/16/16 06:40 97.6 88 12 144/83 95 Nasal Cannula 2.0 10/16/16 05:54 88 24 161/85 96 Nasal Cannula 2.0 10/16/16 05:32 Nasal Cannula 2 10/16/16 05:16 72 26 96 Nasal Cannula 2.0 10/16/16 05:16 2.0 10/16/16 05:08 97.4 78 24 161/94 95 Physical Exam Const: Alert, no acute distress Head: Atraumatic Eyes: Normal Conjunctiva ENT: Normal External Ears, Nose and Mouth. Pharynx is clear without erythema or exudate Neck: Full range of motion. No stridor. Nontender Resp: Breath sounds are equal and clear to auscultation bilaterally. No rales rhonchi or wheezes Cardio: Regular rate and rhythm, no murmurs. No chest wall tenderness Abd: Soft, non tender, non distended. Normal bowel sounds. No masses or abnormal pulsations. No rebound or guarding Skin: No petechiae or rashes Back: No midline or flank tenderness Ext: No cyanosis, or edema Neur: Awake and alert. No focal deficit observed. Psych: Cooperative, appears mildly anxious but not depressed. Result Diagram: 10/16/1652910/16/1630 Results 24 hrs Laboratory Tests Test 10/16/16 05:11 10/16/16 05:30 Blood Gas Specimen Source Blood arterial Arterial Blood Date Drawn 10/16/2016 5:20:51 AM Arterial Blood pH (Temp corrected) 7.419 Arterial Blood pCO2 (Temp correct) 36.7mmhg Arterial Blood pO2 (Temp corrected) 105.0mmHG Arterial Blood HCO3 23.2mmol/L Arterial Blood Base Excess -0.8mmol/L Arterial Blood Oxygen Saturation 97.8mmHG Evelio Test ACCEPTAB Arterial Blood Gas Puncture Site Right Radial Arterial Blood Carboxyhemoglobin 0% Arterial Blood Methemoglobin 0.3% Blood Gas A-a O2 Differential 174.1mmHg Oxyhemoglobin Percent 97.5% Total Hemoglobin 15.6g/dl Blood Gas Temperature 37.0C Blood Gas Modality MASK - SIMPLE FiO2 45.0% Blood Gas Notified Whom MG Blood Gas Notified Time 10/16/2016 5:25:20 AM White Blood Count 6.210^3/ul Red Blood Count 4.8510^6/ul Hemoglobin 14.8g/dl Hematocrit 44.4% Mean Corpuscular Volume 91.5fl Mean Corpuscular Hemoglobin 30.5pg Mean Corpuscular Hemoglobin Concent 33.3g/dl Red Cell Distribution Width 12.1% Platelet Count 17202^3/UL Mean Platelet Volume 11.7fl Neutrophils % 50.2% Lymphocytes % 38.0% Monocytes % 7.6% Eosinophils % 3.6% Basophils % 0.3% Nucleated Red Blood Cells % 0.0/100WBC Neutrophils # 3.110^3/ul Lymphocytes # 2.410^3/ul Monocytes # 0.510^3/ul Eosinophils # 0.210^3/ul Basophils # 0.010^3/ul Nucleated Red Blood Cells # 0.010^3/ul Prothrombin Time 12.7Sec Prothrombin Time Ratio 1.0 INR International Normalized Ratio 0.95 Activated Partial Thromboplast Time 30.6Sec Sodium Level 136mmol/L Potassium Level 3.4mmol/L Chloride Level 105mmol/L Carbon Dioxide Level 27mmol/L Anion Gap 7 Blood Urea Nitrogen 21mg/dl Creatinine 0.61mg/dl Glucose Level 120mg/dl Calcium Level 9.1mg/dl Total Bilirubin 0.2mg/dl Direct Bilirubin 0.00mg/dl Indirect Bilirubin 0.2mg/dl Aspartate Amino Transf (AST/SGOT) 23IU/L Alanine Aminotransferase (ALT/SGPT) 27IU/L Alkaline Phosphatase 139IU/L Troponin I < 0.012ng/ml B-Type Natriuretic Peptide 37PG/ML Total Protein 7.4g/dl Albumin 4.6g/dl Globulin 2.80g/dl Albumin/Globulin Ratio 1.64 Current Medications Medications (Trade) Dose Ordered Sig/Rosi Route PRN Reason Start Time Stop Time Status Last Admin Dose Admin Albuterol (Proventil 0.5% (Neb)) 10 mg ONCE STAT INH 10/16/16 05:11 10/16/16 05:12 DC 10/16/16 05:15 Ipratropium [place] (Atrovent 0.02% (Neb)) 1 mg ONCE STAT INH 10/16/16 05:11 10/16/16 05:12 DC 10/16/16 05:15 Miscellaneous Medication (Gi Cocktail (2)) 40 ml ONCE ONCE PO 10/16/16 06:30 10/16/16 06:31 DC 10/16/16 07:02 Famotidine 20 mg 20 mg ONCE ONCE IV 10/16/16 06:30 10/16/16 06:31 DC 10/16/16 07:02 Sodium Chloride (NS) 500 ml @ 500 mls/hr Q1H STAT IV 10/16/16 06:41 10/16/16 07:40 DC 10/16/16 07:02 Metoclopramide HCl (Reglan) 10 mg ONCE ONCE IV 10/16/16 07:00 10/16/16 07:01 DC 10/16/16 07:02 Potassium Chloride (Potassium Chloride Pwd/Soln) 40 meq ONCE ONCE PO 10/16/16 07:00 10/16/16 07:01 DC 10/16/16 07:07 Albuterol (Proventil 0.5% (Neb)) 5 mg ONCE STAT INH 10/16/16 06:42 10/16/16 06:43 DC 10/16/16 06:52 EKG: Time: 5:06. Sinus rhythm. Ventricular rate 80, normal MS and QRS intervals. No acute ST segment elevation or depression. No axis deviation or ectopy. EP Impression: Normal EKG IMAGING: PROCEDURE: CHEST - 1 VIEW CLINICAL INDICATION: 61-year-old female with shortness of breath. TECHNIQUE: A single frontal AP upright portable view of the chest was performed. The images were reviewed on a PACS workstation. COMPARISON: None. FINDINGS: The cardiomediastinal silhouette has a normal appearance. There is no evidence for an infiltrate. There is no evidence for congestive heart failure. There is no evidence for pneumothorax. The osseous structures are intact. IMPRESSION: No evidence for active cardiopulmonary disease. .Hermes Wong MD, MD Date Time Electronically viewed and signed by .Hermes Wong MD, MD on 10/16/2016 06:01 .M/ Procedures/MDM DOCUMENTS REVIEWED: ED nurse, prior ED including most recent visit 08/13/2016 for chest pain with shortness of breath and cough. CT of the chest at that time for pulmonary embolism was negative. Patient was diagnosed with pleuritic chest pain and bronchospasm with bronchitis ED COURSE: Nebulized albuterol/Atrovent. GI cocktail, Reglan 10 mg IV and Pepcid 20 mg IV. REEXAMINATION/REEVALUATION: Time:0830. Doing well. Symptoms resolved. Lungs clear. Abdomen soft nontender. MEDICAL DECISION MAKIN-year-old female with history of hypertension, GERD/ gastritis and bronchitis with bronchospasm presents to the ED complaining of awakening at 1 AM with burning sensation in her throat and coughing with mild dyspnea. Patient presents with symptoms consistent with GERD/gastritis. Symptoms resolved with GI cocktail, Reglan and Pepcid. Mild bronchospasm but no radiograph evidence of pneumonia or aspiration resolved with nebulized beta agonists. Mild dehydration treated with normal saline. Hypokalemia replaced orally. No chest pain, ischemic EKG changes, elevated troponin or other signs of acute coronary syndrome or other intrathoracic process including but not limited to pulmonary embolism, aortic dissection and Boerhaave's. Abdominal exam is benign without significant tenderness, rebound, guarding or other signs of acute intra-abdominal process. Stable for discharge precautionary instructions and outpatient follow-up as counseled. Counseled patient and family regarding diagnostic workup, diagnosis and need for followup. Understands to return to ED if symptoms recur, worsen or any other concerns. Departure Diagnosis: Primary Impression: GERD (gastroesophageal reflux disease) Esophagitis presence: esophagitis presence not specified Qualified Code: K21.9 - Gastroesophageal reflux disease, esophagitis presence not specified Additional Impressions: Sleep related gastroesophageal reflux disease Hypertension Hypertension type: essential hypertension Qualified Code: I10 - Essential hypertension Dehydration Hypokalemia Shortness of breath Condition: Stable (Improved) NELSON ROSA MD Oct 16, 2016 06:39
[2016-10-16] MEDS ORDERED: METOCLOPRAMIDE 10 MG INJ IV ONE (07:00)
[2016-10-16] MEDS ORDERED: POTASSIUM CHLORIDE 20 MEQ POWDER FOR ORAL SOLN PO ONE (07:00)
[2016-10-16] MEDS ORDERED: ALBU8.5H3 INH (08:56)
[2016-10-16] MEDS ORDERED: METO10TA92 PO (08:56)
[2016-10-16] MEDS ORDERED: FAMO-96 PO (08:56)
[2016-10-16] MEDS ORDERED: MAG-19 PO (08:56)
[2016-10-16 09:15] VITALS: BP 95/58; PULSE 100; RESP 12
== END 2016-10-16 09:15 | disposition home or self-care (01) ==
LOC: E/R 05:00
DX: K21.9 Gastro-esophageal reflux disease without esophagitis (principal); I10 Essential (primary) hypertension; E86.0 Dehydration; E87.6 Hypokalemia; Z87.891 Personal history of nicotine dependence
CPT/HCPCS: 36600; 71010; 80053; 82803; 83880; 84484; 85025; 85610; 85730; 93005; 94644; 94645; J2765; J7040; Z7610; 36415; 96374; 96375

== ENCOUNTER 2017-10-26 13:24 | Emergency (ER) | END 2017-10-26 15:46 | disposition home or self-care (01) ==

== ENCOUNTER 2018-07-08 20:20 | Emergency (ER) | payer OTHER ==
[~2018-07-08] VITALS: Ht 157.5 cm; Wt 81.1 kg
[~2018-07-08 20:20] MED LIST changes: -ALBU8.5H3 INH; +ALBU8.5H8 INH; -AZIT500T3 PO; -BENZ100C70 PO; +CETI10CA PO; +FAMO-96 PO; +IBUP-1542 PO; +MAG-19 PO; +METO10TA92 PO; +OMEP40CA6 PO; -PRED50 PO
[2018-07-08 21:02] VITALS: Ht 157.5 cm; Wt 81.1 kg
[2018-07-09] MEDS ORDERED: morphine 4 MG/ML VIAL IV STA (00:42)
[2018-07-09] MEDS ORDERED: ONDANSETRON 4 MG INJ IV STA (00:42)
[2018-07-09] MEDS ORDERED: SOD CHLORIDE 0.9% 500 ML IV STA (00:42)
[2018-07-09] MEDS ORDERED: CIPR500T4 PO (03:16)
[2018-07-09] MEDS ORDERED: ONDA4TAB14 PO (03:16)
[2018-07-09 03:29] VITALS: BP 131/77; PULSE 65; RESP 18
--- NOTE | 2018-07-13 04:01 | ERD ---
ER Documentation Chief Complaint Chief Complaint AP x1 day. no n/v/d/fever/urinary symptoms HPI This is a 63 female lower abdominal pain for the past day. Pain is mild to moderate intensity. No nausea no vomiting no fevers no chills. No trauma. No sick contacts. ROS All systems reviewed and are negative except as per history of present illness. Medications Home Meds Active Scripts Ondansetron (Ondansetron Odt) 4 Mg Tab.rapdis, 4 MG PO Q6H PRN for NAUSEA AND/OR VOMITING, #10 TAB Prov:HARSHAD BLUNT. 07/09/18 Ciprofloxacin Hcl* (Ciprofloxacin Hcl*) 500 Mg Tablet, 500 MG PO BID for 7 Days, TAB Prov:HARSHAD BLUNT 07/09/18 Cetirizine Hcl* (Zyrtec*) 10 Mg Capsule, 10 MG PO DAILY, #30 TAB.CHEW Prov:MARSHA PERSAUD-C 10/26/17 Ibuprofen* (Motrin*) 600 Mg Tab, 600 MG PO Q6H PRN for PAIN AND OR ELEVATED TEMP, #30 TAB Prov:MARSHA PERSAUD PA-C 10/26/17 Magaldrate/Simethicone* (Mylanta*) 355 Ml Susp, 30 ML PO QID PRN for GASTROINTESTINAL UPSET, #1 BOTTLE Prov:NELSON ROSA MD 10/16/16 Albuterol Sulfate* (Proair HFA*) 8.5 Gm Hfa.aer.ad, 2 PUFF INH Q4H PRN for WHEEZING AND SOB, #1 INHALER Prov:NELSON ROSA MD 10/16/16 Metoclopramide* (Reglan*) 10 Mg Tablet, 10 MG PO Q8 PRN for NAUSEA AND/OR VOMITING, #12 TAB Prov:NELSON ROSA MD 10/16/16 Famotidine* (Pepcid*) 20 Mg Tablet, 20 MG PO BID for 10 Days, TAB Prov:NELSON ROSA MD 10/16/16 Reported Medications Omeprazole* (Omeprazole*) 40 Mg Capsule.dr, 40 MG PO DAILY, #30 CAP 10/16/16 Amlodipine Besylate* (Norvasc*) 5 Mg Tablet, 5 MG PO DAILY, TAB 06/27/16 Allergies Allergies: Coded Allergies: No Known Drug Allergies (Unverified Allergy, Mild, 10/16/16) PMhx/Soc History of Surgery: Yes ( 2, appendectomy) Anesthesia Reaction: No Hx Neurological Disorder: No Hx Respiratory Disorders: Yes (Bronchitis) Hx Cardiac Disorders: Yes (Hypertension) Hx Psychiatric Problems: No Hx Miscellaneous Medical Probl: Yes (Gastritis) Hx Alcohol Use: Yes Hx Substance Use: No Hx Tobacco Use: Yes Smoking Status: Current some day smoker Physical Exam Physical Exam Const: No acute distress Head: Atraumatic Eyes: Normal Conjunctiva ENT: Normal External Ears, Nose and Mouth. Neck: Full range of motion. No meningismus. Resp: Clear to auscultation bilaterally Cardio: Regular rate and rhythm, no murmurs Abd: Soft, non tender, non distended. Normal bowel sounds Skin: No petechiae or rashes Back: No midline or flank tenderness Ext: No cyanosis, or edema Neur: Awake and alert Psych: Normal Mood and Affect Result Diagram: 07/09/18 0054 07/09/18 0053 Results 24 hrs Laboratory Tests Test 07/09/18 00:53 07/09/18 00:54 Sodium Level 142 mmol/L Potassium Level 3.9 mmol/L Chloride Level 108 mmol/L Carbon Dioxide Level 25 mmol/L Anion Gap 9 Blood Urea Nitrogen 24 mg/dl Creatinine 0.85 mg/dl Est Glomerular Filtrat Rate mL/min > 60 mL/min Glucose Level 141 mg/dl Calcium Level 9.1 mg/dl Total Bilirubin 0.4 mg/dl Direct Bilirubin 0.00 mg/dl Indirect Bilirubin 0.4 mg/dl Aspartate Amino Transf (AST/SGOT) 25 IU/L Alanine Aminotransferase (ALT/SGPT) 23 IU/L Alkaline Phosphatase 141 IU/L Total Protein 7.9 g/dl Albumin 4.3 g/dl Globulin 3.60 g/dl Albumin/Globulin Ratio 1.19 Lipase 71 U/L White Blood Count 7.9 10^3/ul Red Blood Count 4.74 10^6/ul Hemoglobin 14.5 g/dl Hematocrit 43.3 % Mean Corpuscular Volume 91.4 fl Mean Corpuscular Hemoglobin 30.6 pg Mean Corpuscular Hemoglobin Concent 33.5 g/dl Red Cell Distribution Width 11.9 % Platelet Count 164 10^3/UL Mean Platelet Volume 11.7 fl Immature Granulocytes % 0.500 % Neutrophils % 58.2 % Lymphocytes % 31.5 % Monocytes % 7.0 % Eosinophils % 2.4 % Basophils % 0.4 % Nucleated Red Blood Cells % 0.0 /100WBC Immature Granulocytes # 0.040 10^3/ul Neutrophils # 4.6 10^3/ul Lymphocytes # 2.5 10^3/ul Monocytes # 0.6 10^3/ul Eosinophils # 0.2 10^3/ul Basophils # 0.0 10^3/ul Nucleated Red Blood Cells # 0.0 10^3/ul Urine Color YELLOW Urine Clarity SLIGHTLY CLOUDY Urine pH 5.0 Urine Specific [place] 1.027 Urine Ketones NEGATIVE mg/dL Urine Nitrite NEGATIVE mg/dL Urine Bilirubin NEGATIVE mg/dL Urine Urobilinogen NEGATIVE mg/dL Urine Leukocyte Esterase 2+ Simon/ul Urine Microscopic RBC 8 /HPF Urine Microscopic WBC 30 /HPF Urine Squamous Epithelial Cells FEW /HPF Urine Mucus FEW /HPF Urine Hemoglobin NEGATIVE mg/dL Urine Glucose NEGATIVE mg/dL Urine Total Protein NEGATIVE mg/dl Current Medications Medications Dose Sig/Rosi Start Time Status Last (Trade) Ordered Route PRN Stop Time Admin Dose Reason Admin Sodium 500 ml @ Q1H STAT 07/09/18 DC 07/09/18 Chloride 500 mls/hr IV 00:42 07/09/18 01:12 01:41 Morphine 4 mg ONCE STAT 07/09/18 DC 07/09/18 Sulfate IV 00:42 07/09/18 01:12 (morphine) 00:43 Ondansetron 4 mg ONCE STAT 07/09/18 DC 07/09/18 HCl (Zofran IV 00:42 07/09/18 01:12 Inj) 00:43 Procedures/MDM Medical decision making: Patient's gastrointestinal symptoms have stabilized while in the department. No evidence of severe dehydration, sepsis, or surgical abdomen. Extensive discussion with family and patient that occult disease cannot be ruled out. 8 hour recheck for repeat abdominal exam is planned. Diagnostic data: Chest X-ray 1V Interpreted by me: Soft Tissue: No acute abnormalities Bones: No acute abnormalities Mediastinum/Cardiac Silhouette/Lungs: [No acute abnormalities] Departure Diagnosis: Primary Impression: UTI (urinary tract infection) Condition: Stable Patient Instructions: Urinary Tract Infections in Women HARSHAD BLUNT Jul 13, 2018 04:01
== END 2018-07-09 03:31 | disposition home or self-care (01) ==
LOC: E/R 20:20
DX: N39.0 Urinary tract infection, site not specified (principal); I10 Essential (primary) hypertension; F17.210 Nicotine dependence, cigarettes, uncomplicated
CPT/HCPCS: 71045; 74176; 80053; 81001; 83690; 85025; J2270; J2405; J7040; Z7610; 36415; 96374; 96375